=== PATIENT | female | born 1980 | race Hispanic/Latino ===

== ENCOUNTER 2018-04-12 05:29 | Inpatient (IN) | payer OTHER, MEDICAID ==
[2018-04-12] MEDS ORDERED: PEPCID IV ONE (05:46)
[2018-04-12] MEDS ORDERED: BICITRA PO ONE (05:46)
[2018-04-12] MEDS ORDERED: PITOCin/NS 20 UNIT/1000ML DRIP 20 UNITS/1,000 ML BAG IV SCH ×3 (06:00→11:00)
[2018-04-12] MEDS: LACTATED RINGERS 1,000 ML IV SCH ×3 (06:00→08:47)
[2018-04-12] MEDS ORDERED: REGLAN IV ONE (06:00)
[2018-04-12] MEDS ORDERED: ANCEF/STERILE WATER 2 GM/20 ML 2 GM/20 ML SYRINGE IV NR (06:00)
[2018-04-12 06:33] LABS: Basophils % (Auto) 0.2 % (0.0-1.8); Eosinophils # (Auto) 0.1 K/mm3 (0.0-0.4); Eosinophils % (Auto) 0.6 % (0.0-4.3); Hematocrit 40.5 % (30.3-42.9); Hemoglobin 13.4 gm/dl (10.1-14.3); Lymphocytes # (Auto) 2.4 K/mm3 (1.2-5.4); Lymphocytes % (Auto) 24.3 % (13.4-35.0); Mean Corpuscular HGB Conc 33 % (30-34); Mean Corpuscular Volume 92 fl (79-97); Monocytes # (Auto) 0.9 K/mm3 (0.0-0.8); Monocytes % (Auto) 8.8 % (0.0-7.3); Platelet Count 283 K/mm3 (140-440); Red Blood Count 4.38 M/mm3 (3.65-5.03)
--- NOTE | 2018-04-12 06:57 | History and Physical Report ---
History of Present Illness Date of examination: 04/12/18 Date of admission: 04/12/18 05:29 Chief complaint: C Section History of present illness: Pt is a 38yo WF EDC 04/19/18; EGA 39 0/7 weeks presents to L&D for a Primary C Section with BTL due to a history of shoulder dystocia with last delivery. She received late care at [facility] since 31 weeks and co-managed with [facility]. records are available and GBS is Negative. Past History Past Medical History: no pertinent history Past Surgical History: no surgical history Family/Genetic History: none Social history: no significant social history, single - Obstetrical History Expected Date of Delivery: 04/19/18 Actual Gestation: 39 Week(s) 0 Day(s) : 3 Medications and Allergies Allergies Allergy/AdvReac Type Severity Reaction Status Date / Time No Known Allergies Allergy Unverified 02/08/18 12:58 Active Meds: Active Medications Cefazolin Sodium (Ancef/Sterile Water 2 Gm/20 Ml) 2 gm in 20 mls @ 80 mls/hr IV PREOP NR; Protocol Stop: 04/12/18 23:45 Lactated Ringer's (Lactated Ringers) 1,000 mls @ 2,250 mls/hr IV PREOP MARLENE Stop: 04/13/18 06:27 Oxytocin/Sodium Chloride (Pitocin/Ns 20 Unit/1000ml Drip) 20 units in 1,000 mls @ 0 mls/hr IV TITR MARLENE Review of Systems All systems: negative - Vital Signs Vital signs: Vital Signs Pulse BP 87 124/76 04/12/18 06:45 04/12/18 06:45 Temp Pulse Resp BP Pulse Ox 87 124/76 04/12/18 06:45 04/12/18 06:45 - Physical Exam Breasts: Positive: deferred Cardiovascular: Regular rate Lungs: Positive: Clear to auscultation Abdomen: Positive: normal appearance Genitourinary (Female): Positive: normal external genitalia Uterus: Positive: enlarged Extremities: Positive: normal - Obstetrical FHR: category 1 Uterine Contraction Monitor Mode: External Results Result Diagrams: 04/12/18 05:55 Abnormal lab results 04/12/18 Range/Units 05:55 RDW 16.0 H (13.2-15.2) % [place] % (Auto) 8.8 H (0.0-7.3) % [place] # 0.9 H (0.0-0.8) K/mm3 All other labs normal. Assessment and Plan - Patient Problems (1) 39 weeks gestation of Onset Date: 04/12/18 Current Visit: Yes Status: Acute Plan to address problem: A: IUP @ 39 0/7 weeks Previous shoulder dystocia Desires permanent sterilization P: Admit to L&D for a C Section with BTL
--- NOTE | 2018-04-12 08:19 | Anesthesia Consultation ---
Anesthesia Consult and Med Hx Date of service: 04/12/18 - Airway Anesthetic Teeth Evaluation: Chipped (multiple broken teeth) ROM Head & Neck: Adequate Mental/Hyoid Distance: Adequate Mallampati Class: Class II Intubation Access Assessment: Probably Good - Pulmonary Exam CTA: Yes - Cardiac Exam Cardiac Exam: RRR - Pre-Operative Health Status ASA Pre-Surgery Classification: ASA3 Proposed Anesthetic Plan: Spinal Nerve Block: Quadratus Lumborum bilaterally - Pulmonary Hx Smoking: No Hx Asthma: No COPD: No Hx Pneumonia: No - Cardiovascular System Hx Hypertension: Yes Hx Cardia Arrhythmia: No - Central Nervous System Hx Neuromuscular Disorder: No Hx Seizures: No Hx Psychiatric Problems: No - Endocrine Hx Renal Disease: No Hx End Stage Renal Disease: No Hx Hypothyroidism: No Hx Hyperthyroidism: No - Hematic Hx Anemia: No Hx Sickle Cell Disease: No - Other Systems Hx Alcohol Use: No
[2018-04-12] MEDS ORDERED: WATER FOR IRRIG STERILE IR ONE (09:59)
[2018-04-12] MEDS ORDERED: NACL 0.9% IR ONE (09:59)
[2018-04-12] MEDS ORDERED: ZOFRAN ONE (10:20)
[2018-04-12] MEDS ORDERED: VERSED ONE (10:20)
[2018-04-12] MEDS ORDERED: SUBLIMAZE ONE (10:21)
--- NOTE | 2018-04-12 10:48 | Operative Report ---
Operative Report Operative Report: Date of procedure: 04/12/2018 Pre-operative diagnosis: 1. Intrauterine at 39 0/7 weeks 2. Desires permanent sterilization Post-operative diagnosis: Same Procedure name(s): 1. Primary low transverse section 2. Bilateral tubal ligation shield none Surgeon: Leighton Weston MD Cashier Credit: None Anesthesia: Spinal anesthesia by Dr. Villatoro EBL: 500 mls Findings: A 3371 g female infant Apgars 8 at 1 minute and 9 at 5 minutes. Clear amniotic fluid. Normal uterus. Normal tubes and ovaries bilaterally. Procedure: After the patient was prepped and draped in usual sterile fashion, and after satisfactory level of epidural anesthesia was obtained, the skin knife was used to make a transverse skin incision. The incision was excised down to layer of the fascia, which was nicked in the midline and extended laterally using the Bovie cautery. The rectus muscles were dissected off the rectus fascia both superiorly and inferiorly. The rectus bellies in the midline, and the peritoneum was entered under direct visualization. The peritoneal incision was extended superiorly and inferiorly. A bladder flap was created and the bladder blade was then placed. The uterus was scored in a curvilinear linear fashion, entered in the midline revealing clear amniotic fluid. The 's head was delivered onto the surgical field, and the oropharynx and nasopharynx were bulb suctioned. The rest of the 's body was delivered, cord was doubly clamped and cut and the infant was handed to the waiting respiratory team. Cord blood was then obtained. The placenta was manually removed from the uterus, and the uterus removed from its normal anatomical position. After gentle uterine lavage, the incision was inspected and found to be without extensions. It was then closed in 2 layers using 0 Vicryl suture in a running interlocking fashion, the second layer imbricating t he first. After good hemostasis was achieved, copious amounts or irrigation was performed, and the gutters were suctioned free of blood and blood clots. Attention was then turned for the tubal ligation. First a [place] was used to grasp the right fallopian tube, and after the fimbriated end was identified, the [place] clip was applied to the proximal portion of tube. The [place]ara was then used to grasp the left fallopian tube, and after the fimbriated end was identified, the [place] clip was applied to the proximal portion of the tube. The Tisseel sealant was sprayed across the uterine incision. The uterus was then returned to its normal anatomical position, and after excellent hemostasis assured, the peritoneum was re-approximated using 3-0 Vicryl suture in a running interlocking fashion, and then the rectus muscles were re-approximated using 3-0 Vicryl suture in a [id number] configuration. The fascia was then re- approximated using 0 Vicryl suture in running interlocking fashion. The subcutaneous layer was made hemostatic using Bovie cautery, the Tisseel sealant was sprayed across the fascial incision and the skin edges re-approximated using 4-0 Vicryl suture in a sub-cuticular fashion. Patient tolerated the procedure well was transported to recovery in stable condition.
[2018-04-12] MEDS ORDERED: LANSINOH TP PRN ×2 (10:57→11:30)
[2018-04-12] MEDS ORDERED: NARCAN 0.4 MG/1 ML IV PRN ×2 (10:57→11:30)
[2018-04-12] MEDS ORDERED: TUCKS PAD TP PRN ×2 (10:57→11:30)
[2018-04-12] MEDS ORDERED: D5LR 1,000 ML IV SCH (11:00)
[2018-04-12] MEDS ORDERED: SODIUM CHLORIDE FLUSH SYRINGE 10 ML IV PRN ×2 (11:00)
[2018-04-12] MEDS ORDERED: NACL 0.9% 1000 ML 1,000 ML ONE (11:01)
[2018-04-12] MEDS ORDERED: MARCAINE 0.5% INFILTRATI ONE (11:10)
[2018-04-12] MEDS ORDERED: DECADRON ONE (11:10)
[2018-04-12] MEDS ORDERED: NACL 0.9% 100 ML ONE (11:13)
[2018-04-12] MEDS ORDERED: ZOFRAN IV PRN (11:30)
[2018-04-12] MEDS ORDERED: MYLICON PO PRN (11:30)
[2018-04-12] MEDS ORDERED: TYLENOL PO PRN (11:30)
[2018-04-12] MEDS ORDERED: PHENERGAN PR PRN (11:30)
[2018-04-12] MEDS ORDERED: NORCO 5/325 PO PRN (11:30)
[2018-04-12] MEDS: TORADOL IV PRN (17:18)
[2018-04-12] MEDS: ANCEF/NS 1 GM/50 ML 1 GM/50 ML BAG IV SCH (18:10)
[2018-04-12] MEDS ORDERED: SENOKOT PO PRN (22:00)
[2018-04-12] MEDS ORDERED: MILK OF MAGNESIA PO PRN (22:00)
[2018-04-12 23:11] LABS: Hematocrit 36.6 % (30.3-42.9); Hemoglobin 12.1 gm/dl (10.1-14.3)
[2018-04-13] MEDS: TORADOL IV PRN (00:11)
[2018-04-13] MEDS: ANCEF/NS 1 GM/50 ML 1 GM/50 ML BAG IV SCH (04:20)
[2018-04-13] MEDS ORDERED: BOOSTRIX IM ONE (06:00)
[2018-04-13] MEDS: PERCOCET 5/325 PO PRN ×2 (09:25→21:01)
[2018-04-13] MEDS: IBUPROFEN PO PRN ×2 (09:25→17:07)
[2018-04-13] MEDS ORDERED: M-M-R II VACCINE SUB-Q ONE (11:00)
--- NOTE | 2018-04-13 11:58 | Progress Note ---
Assessment and Plan - Patient Problems (1) 39 weeks gestation of Onset Date: 04/12/18 Current Visit: Yes Status: Resolved (2) Status post Onset Date: 04/13/18 Current Visit: Yes Status: Resolved Plan to address problem: A: S/P C Section with BTL - POD #1 Doing well P: Continue RPOC Anticipate discharge in 24-48hrs Subjective - Subjective Date of service: 04/13/18 Principal diagnosis: s/p C section - POD #1 Interval history: Pt is feeling well without complaints. Bleeding improved. She is tolerating a reg diet without nausea or vomiting, ambulating and voiding without difficulty. Patient reports: appetite normal, voiding normally, pain well controlled, flatus, ambulating normally, no dizzy ambulation, no nauseated [place]: doing well, bottle feeding Objective - Vital Signs Latest vital signs: Vital Signs Temp Pulse Resp BP BP Pulse Ox 04/13/18 09:25 18 04/13/18 07:46 98.7 F 85 18 100/62 97 04/13/18 05:13 98.6 F 83 18 102/72 96 04/13/18 00:09 98.5 F 87 20 123/76 95 04/12/18 20:44 98.4 F 85 18 114/78 96 04/12/18 17:18 20 04/12/18 17:07 98.2 F 89 20 136/90 96 04/12/18 12:40 98.1 F 91 H 20 127/78 04/12/18 12:20 97.8 F 93 H 20 137/83 96 04/12/18 12:00 91 H 17 128/84 97 Intake and Output 04/12/18 04/13/18 04/13/18 22:59 06:59 14:59 Intake Total 1370 1170 360 Output Total 600 700 Balance 1370 570 -340 Intake: IV 50 1050 ANCEF/NS 1 GM/50 ML 1 gm 50 50 In 50 ml @ 100 mls/hr IV Q8H MARLENE Rx#:[id number] D5lr 1,000 ml @ 125 mls/ 1000 hr IV DIRECT MARLENE Rx#: [id number] Oral 720 120 Intake, Free Water 600 360 Output: Urine 600 700 Indwelling Catheter 600 700 Other: Total, Intake Amount 240 120 Total, Output Amount 400 700 # Voids Indwelling Catheter 3 - Exam Breasts: Present: deferred Abdomen: Present: normal appearance, soft Uterus: Present: normal, firm, fundal height below umbilicus Extremities: Present: edema Incision: Present: normal, dry, intact, dressed - Labs Labs: Laboratory Tests 04/12/18 04/12/18 04/12/18 05:55 05:55 05:55 WBC 9.9 RBC 4.38 Hgb 13.4 Hct 40.5 MCV 92 MCH 31 MCHC 33 RDW 16.0 H Plt Count 283 Lymph % (Auto) 24.3 [place] % (Auto) 8.8 H Eos % (Auto) 0.6 Baso % (Auto) 0.2 Lymph # 2.4 [place] # 0.9 H Eos # 0.1 Baso # 0.0 Seg Neutrophils % 66.1 Seg Neutrophils # 6.6 RPR Nonreactive Blood Type O NEGATIVE Antibody Screen Negative 04/12/18 22:42 WBC RBC Hgb 12.1 Hct 36.6 MCV MCH MCHC RDW Plt Count Lymph % (Auto) [place] % (Auto) Eos % (Auto) Baso % (Auto) Lymph # [place] # Eos # Baso # Seg Neutrophils % Seg Neutrophils # RPR Blood Type Antibody Screen
[2018-04-13] MEDS: PRENATAL VITAMIN PO SCH (12:54)
[2018-04-13] MEDS: FEOSOL PO SCH (12:54)
[2018-04-14] MEDS: PERCOCET 5/325 PO PRN ×2 (05:24→21:23)
[2018-04-14] MEDS ORDERED: BOOSTRIX IM ONE (06:00)
[2018-04-14] MEDS: FEOSOL PO SCH (10:08)
[2018-04-14] MEDS: PRENATAL VITAMIN PO SCH (10:08)
[2018-04-14] MEDS: IBUPROFEN PO PRN ×2 (10:33→17:06)
--- NOTE | 2018-04-14 18:22 | Progress Note ---
Addendum entered and electronically signed by JESS SULTANA CNM 04/14/18 18:24: Correction: primary low transverse section Original Note: Assessment and Plan A: /postop day 2 S/P repeat LTCS/BTL. P: Discharge patient home today. discharge instructions and warning signs discussed with patient. Care of incision and activity restrictions discussed with patient. Advised patient to avoid driving, lifting, heavy housework, stair climbing, and intercourse. Advised patient to follow up in of [facility] in [facility] week. Subjective - Subjective Date of service: 04/14/18 Principal diagnosis: s/p C section - POD #2 Interval history: /postop day 2 S/P repeat LTCS/BTL. Doing well. Patient is voiding without difficulty. She is ambulating well. Passing gas. Tolerating a regular diet without nausea or vomiting. Patient denies headache, chest pain, cough, shortness of breath, visual disturbance, leg pain, abdominal pain, heavy bleeding, symptoms of depression, or any other problems. Patient reports: appetite normal, voiding normally, pain well controlled, flatus, ambulating normally, no dizzy ambulation, no nauseated : doing well Objective - Vital Signs Latest vital signs: Vital Signs Temp Pulse Resp BP BP Pulse Ox 04/14/18 16:28 98.7 F 85 20 124/87 93 04/14/18 08:33 98.5 F 93 H 22 139/89 93 04/14/18 05:24 20 04/14/18 00:00 98.6 F 76 18 118/67 04/13/18 21:01 20 04/13/18 18:23 98.6 F 98 H 18 125/75 95 Intake and Output 04/14/18 04/14/18 04/14/18 07:59 15:59 23:59 Intake Total 300 560 Balance 300 560 Intake: Oral 560 Intake, Free Water 300 Other: Total, Intake Amount 200 # Voids Void 1 - Exam Cardiovascular: Present: Regular rate, Normal S1, Normal S2 Lungs: Present: Clear to auscultation Abdomen: Present: normal appearance, soft, normal bowel sounds. Absent: distention, tenderness, guarding Uterus: Present: normal, firm, fundal height below umbilicus. Absent: bogginess, tenderness Extremities: Present: normal, edema (mild pedal edema bilaterally). Absent: tenderness Incision: Present: normal, dry, intact
[2018-04-15] MEDS: PERCOCET 5/325 PO PRN (03:31)
[2018-04-15] MEDS: FEOSOL PO SCH (09:35)
[2018-04-15] MEDS: IBUPROFEN PO PRN (09:35)
[2018-04-15] MEDS: PRENATAL VITAMIN PO SCH (09:35)
--- NOTE | 2018-04-15 10:27 | Progress Note ---
Assessment and Plan A: /postop day 3 S/P primary low transverse section. P: Discharge patient home today. Discussed with patient discharge instructions and warning signs. Care of incision and activity restrictions discussed with patient. Advised pt. to avoid IC, lifting and heavy housework, driving, stair climbing. Advised pt. to call OB office and obtain an appointment for follow up in 1 week. has left Rx for patient on chart; advised pt. to get these prescriptions filled as soon as she is discharged from hospital. Pt. v oiced understanding of all instructions. Subjective - Subjective Date of service: 04/15/18 Principal diagnosis: s/p C section - POD #3 Interval history: /postop day 3 S/P primary LTCS. Doing well. Patient is voiding without difficulty. She is ambulating well. Passing gas. Tolerating a regular diet without nausea or vomiting. Patient denies headache, chest pain, cough, shortness of breath, visual disturbance, leg pain, abdominal pain, heavy bleeding, symptoms of depression, or any other problems. Patient reports: appetite normal, voiding normally, pain well controlled, flatus, bowel movement, ambulating normally, no dizzy ambulation, no nauseated [place]: doing well Objective - Vital Signs Latest vital signs: Vital Signs Temp Pulse Resp BP BP BP Pulse Ox 04/15/18 08:30 98.6 F 86 20 136/82 95 04/15/18 03:31 20 04/15/18 00:00 98.6 F 71 16 118/75 04/14/18 21:23 18 04/14/18 16:28 98.7 F 85 20 124/87 93 Intake and Output 04/14/18 04/15/18 04/15/18 23:59 07:59 15:59 Intake Total 240 Balance 240 Intake: Oral 240 Other: Total, Intake Amount 240 # Voids Void 1 - Exam Cardiovascular: Present: Regular rate, Normal S1, Normal S2, No murmurs Lungs: Present: Clear to auscultation Abdomen: Present: normal appearance, soft, normal bowel sounds. Absent: distention, tenderness, guarding, rigidity Uterus: Present: normal, firm, fundal height below umbilicus. Absent: bogginess, tenderness Extremities: Present: normal, edema (mild pedal edema bilaterally). Absent: tenderness Incision: Present: normal, dry, intact
--- NOTE | 2018-04-15 10:30 | Discharge Summary ---
Providers - Providers Date of Admission: 04/12/18 05:29 Date of discharge: 04/15/18 Attending physician: PAYTON SALINAS None Primary care physician: PAYTON SALINAS Hospitalization Reason for admission: section Delivery: Procedure: bilateral tubal ligation, primary low transverse Incision: normal, dry, intact Other procedures: tubal ligation complications: none Discharge diagnosis: IUP at term delivered [place] baby: female Pertinent studies: Labs Hospital course: Normal hospital course. Condition at discharge: Good Disposition: DC-01 TO HOME OR SELFCARE - Discharge Diagnoses (1) Term delivered Status: Acute Plan - Discharge Medications Prescriptions: Ferrous Sulfate [Feosol 325 MG tab] 325 mg PO BID #60 tablet HYDROcodone/APAP 5-325 [[place] 5/325] 1 each PO Q6HR PRN #30 tablet PRN Reason: Pain Ibuprofen [Motrin] 800 mg PO Q8HR PRN #30 tablet PRN Reason: Moder Pain Unrelieved By [place] Pnv No.95/Ferrous Fum/Folic AC [ Vitamin Tablet] 1 each PO DAILY #30 tablet - Provider Discharge Summary Activity: routine, no sex for 6 weeks, no heavy lifting 4 weeks, no strenuous exercise Diet: routine Instructions: routine Additional instructions: Call your doctor immediately for: * Fever > 100.5 * Heavy vaginal bleeding ( >1 pad per hour) * Severe persistent headache * Shortness of breath * Reddened, hot, painful area to leg or breast * Drainage or odor from incision. * Keep incision clean and dry at all times and follow doctor's instructions regarding bathing/showering - Follow up plan Follow up: PAYTON SALINAS MD [Primary Care Provider] - 7 Days Forms: [facility] Discharge Summary
[2018-04-15 11:29] VITALS: BP 136/82
== END 2018-04-15 11:17 | disposition home or self-care (01) | DRG 785 ==
LOC: APU 05:29 → OB 12:59
PROVIDERS: ADMIT Obstetrics & Gynecology; ATTEND Obstetrics & Gynecology
PROC: 10D00Z1 Extraction of Products of Conception, Low, Open Approach (ICD-10-PCS; principal; 2018-04-12)
PROC: 0UL70CZ Occlusion of Bilateral Fallopian Tubes with Extraluminal Device, Open Approach (ICD-10-PCS; 2018-04-12)
PROC: 3E0234Z Introduction of Serum, Toxoid and Vaccine into Muscle, Percutaneous Approach (ICD-10-PCS; 2018-04-14)
DX: O10.92 Unspecified pre-existing hypertension complicating childbirth (principal); Z3A.39 39 weeks gestation of pregnancy; Z37.0 Single live birth; Z23 Encounter for immunization
CPT/HCPCS: 36415; 85014; 85018; 85025; 86592; 86850; 86900; 86901; 90471; 90715; G0378; C9250; J0690; J1100; J1885; J2250; J2405; J2590; J2765; J3010; J7030; J7120; J7121